=== PATIENT | male | born 1970 | race Two or more races ===

== ENCOUNTER → 2025-05-08 | Outpatient (CLI) | payer BC, OTHER, SELFPAY ==
[2025-05-08 17:53] LABS: Prostate Specific Antigen 0.80 ng/mL (0-4.00)
== END | disposition home or self-care (01) ==
LOC: COPL 16:22
PROVIDERS: PCP Internal Medicine; Referring Provider Surgery; Visit Provider Surgery
DX: N40.1 Benign prostatic hyperplasia with lower urinary tract symptoms (principal)
CPT/HCPCS: 36415; 84153